=== PATIENT | male | born 2000 | race Caucasian/White ===

== ENCOUNTER 2019-05-06 21:25 | Emergency (ER) | payer BC ==
[2019-05-06] MEDS ORDERED: Sodium Chloride 0.9% 10 ML Syringe FLUSH PRN (21:28)
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
[2019-05-06 22:12] LABS: CHLORIDE,CL 101 mmol/L (98-107); SODIUM,NA 138 mmol/L (136-145)
== END 2019-05-06 23:50 | disposition home or self-care (01) ==
LOC: LL.ED 21:25
DX: S06.0X9A Concussion with loss of consciousness of unspecified duration, initial encounter (principal); S80.01XA Contusion of right knee, initial encounter; S80.11XA Contusion of right lower leg, initial encounter; M54.2 Cervicalgia; F41.8 Other specified anxiety disorders; F41.9 Anxiety disorder, unspecified; F32.9 Major depressive disorder, single episode, unspecified; Z79.899 Other long term (current) drug therapy; V43.52XA Car driver injured in collision with other type car in traffic accident, initial encounter
CPT/HCPCS: 36415; 72020; 72125; 73130-LT; 73562-LT; 73590-LT; 73590-RT; 80053; 81001; 82150; 82550; 82553; 83605; 83690; 83735; 84484; 84550; 85025; 85610; 85730; 87086; 99285-25; G0390

== ENCOUNTER 2019-12-31 07:41 | Observation (INO) | payer BC ==
[2019-12-31 08:22] LABS: CHLORIDE,CL 103 mmol/L (98-107); SODIUM,NA 143 mmol/L (136-145)
[2019-12-31] MEDS ORDERED: Ondansetron 4 MG Tab.DIS PO ONE (08:22)
[2019-12-31] MEDS ORDERED: Tamsulosin 0.4 MG Cap.ER PO ONE ×2 (08:22→10:27)
[2019-12-31] MEDS ORDERED: Sodium Chloride 0.9% 10 ML Syringe FLUSH PRN (08:22)
[2019-12-31] MEDS ORDERED: Ketorolac 60 MG/2 ML SDV IM ONE (08:22)
[2019-12-31] MEDS ORDERED: Sodium Chloride 0.9% 1,000 ML IV ONE ×2 (08:45→10:16)
--- NOTE | 2019-12-31 09:45 | EDM.PDOC ---
ED HPI GENERAL MEDICAL PROBLEM - General Chief Complaint: Abdominal Pain Stated Complaint: left sided abd pain Time Seen by Provider: 12/31/19 08:10 Source of Information: Reports: Patient History Limitations: Reports: No Limitations - History of Present Illness INITIAL COMMENTS - FREE TEXT/NARRATIVE: Sudden sharp stabbing left flank pain around 6:45 this morning. Followed by nausea/emesis. Bogard fine prior to episode. 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 No fevers/chills. No history of kidney stones but strong family history. Denies hematuria. Does have feeling of incomplete bladder emptying/urgency at times. Urinating can help with flank pain. No burning with urination. No other acute changes reported with ROS Left Abdomen Pain Score (Numeric/FACES): 8 - Related Data Allergies Allergy/AdvReac Type Severity Reaction Status Date / Time No Known Allergies Allergy Verified 12/31/19 07:42 Home Meds: Home Meds . [No Known Home Meds] 12/31/19 [History] Past Medical History HEENT History: Reports: None Cardiovascular History: Reports: None Respiratory History: Reports: None, Intubation, Previous Gastrointestinal History: Reports: None Genitourinary History: Reports: None Musculoskeletal History: Reports: None Neurological History: Reports: None Psychiatric History: Reports: Anxiety, Depression Endocrine/Metabolic History: Reports: None Hematologic History: Reports: None Immunologic History: Reports: None Dermatologic History: Reports: None - Infectious Disease History Infectious Disease History: Reports: Chicken Pox - Past Surgical History Head Surgeries/Procedures: Reports: None HEENT Surgical History: Reports: Adenoidectomy, Oral Surgery, Tonsillectomy, Other (See Below) Other HEENT Surgeries/Procedures: Tonsillectomy and adenoidectomy on 02/15/03. Previous braces. Cardiovascular Surgical History: Reports: None Respiratory Surgical History: Reports: None GI Surgical History: Reports: None Male Surgical History: Reports: Circumcision, Other (See Below) Other Male Surgeries/Procedures: Circumcision as an infant Endocrine Surgical History: Reports: None Neurological Surgical History: Reports: None Musculoskeletal Surgical History: Reports: None Oncologic Surgical History: Reports: None Dermatological Surgical History: Reports: None Social & Family History - Tobacco Use Smoking Status *Q: Never Smoker Second Hand Smoke Exposure: No - Caffeine Use Caffeine Use: Reports: Soda - Alcohol Use Alcohol Use Frequency: Socially - Recreational Drug Use Recreational Drug Use: No - Living Situation & Occupation Living situation: Reports: Single, with Family (Parents and sibling) Occupation: Employed ([employer] ED ROS GENERAL - Review of Systems Review Of Systems: Comprehensive ROS is negative, except as noted in HPI. ED EXAM, GENERAL - Physical Exam Exam: See Below Exam Limited By: No Limitations General Appearance: Alert, Moderate Distress Eye Exam: Bilateral Eye: EOMI, PERRL Ears: Hearing Grossly Normal Nose: No: Nasal Deformity, Nasal Swelling, Nasal Drainage Throat/Mouth: Normal Lips, Normal Voice, No Airway Compromise Head: Atraumatic, Normocephalic Neck: Normal Inspection, Supple, Non-Tender, Full Range of Motion Respiratory/Chest: No Respiratory Distress, Lungs Clear, Normal Breath Sounds, No Accessory Muscle Use, Chest Non-Tender Cardiovascular: Regular Rate, Rhythm, No Murmur GI/Abdominal: Soft, Tender (Left mid abdomen), Abnormal Bowel Sounds (decreased) . No: Guarding, Rigid, Rebound, Mass (Male) Exam: Deferred Rectal (Males) Exam: Deferred Back Exam: No: CVA Tenderness (L), CVA Tenderness (R), Muscle Spasm, Paraspinal Tenderness, Vertebral Tenderness Extremities: Normal Inspection, Normal Capillary Refill Neurological: Alert, Oriented, Normal Cognition, Normal Gait Psychiatric: Anxious Skin Exam: Warm, Dry, Intact, Normal Color Course - Vital Signs Last Recorded V/S: Last Vital Signs Temp 37.1 C 12/31/19 07:52 Pulse 74 12/31/19 08:02 Resp 20 12/31/19 08:02 BP 123/91 H 12/31/19 08:02 Pulse Ox 100 12/31/19 08:02 - Orders/Labs/Meds Orders: Active Orders 24 hr Category Date Time Status Abdomen 2V AP Flat Upright [CR] Stat Exams 12/31/19 07:49 Taken Abdomen Pelvis wo Cont [CT] Stat Exams 12/31/19 08:23 Ordered Sodium Chloride 0.9% [Normal Saline] 1,000 ml Med 12/31/19 08:45 Ordered IV .BOLUS Sodium Chloride 0.9% [Saline Flush] Med 12/31/19 08:22 Ordered 10 ml FLUSH ASDIRECTED PRN Saline Lock Insert [OM.PC] Routine Oth 12/31/19 08:22 Ordered Medication Orders Sodium Chloride (Normal Saline) 1,000 mls @ 999 mls/hr IV .BOLUS ONE Stop: 12/31/19 09:45 Last Admin: 12/31/19 08:51 Dose: 999 mls/hr Sodium Chloride (Saline Flush) 10 ml FLUSH ASDIRECTED PRN PRN Reason: Keep Vein Open Labs: Laboratory Tests 12/31/19 12/31/19 12/31/19 Range/Units 07:56 07:57 07:57 WBC 10.0 (4.0-10.2) K/uL RBC 4.93 (4.33-5.41) M/uL Hgb 15.5 (13.1-16.8) g/dL Hct 41.8 (39.0-49.0) % MCV 84.8 (84.0-98.0) fL MCH 31.4 (28.2-33.3) pg MCHC 37.1 H (31.7-36.0) g/dL RDW 12.6 (11.2-14.1) % Plt Count 268 (150-350) K/uL Neut % (Auto) 64.2 (45.0-80.0) % Lymph % (Auto) 24.9 (10.0-50.0) % [place] % (Auto) 9.8 (2.0-14.0) % Eos % (Auto) 0.8 (0.0-5.0) % Baso % (Auto) 0.3 (0.0-2.0) % Neut # (Auto) 6.40 (1.40-7.00) K/uL Lymph # (Auto) 2.49 (0.50-3.50) K/uL [place] # (Auto) 0.98 (0.00-1.00) K/uL Eos # (Auto) 0.08 (0.00-0.50) K/uL Baso # (Auto) 0.03 (0.00-0.20) K/uL Sodium 143 (136-145) mmol/L Potassium 3.5 (3.5-5.1) mmol/L Chloride 103 (98-107) mmol/L Carbon Dioxide 28.1 (21.0-32.0) mmol/L BUN 13 (7-18) mg/dL Creatinine 0.95 (0.51-1.17) mg/dL Est Cr Clr Drug Dosing 136.14 mL/min Estimated GFR (MDRD) > 60 mL/min Glucose 126 H (74-106) mg/dL Calcium 9.4 (8.5-10.1) mg/dL Total Bilirubin 0.7 (0.2-1.0) mg/dL AST 17 (15-37) U/L ALT 28 (12-78) U/L Alkaline Phosphatase 104 (46-116) IU/L Total Protein 7.6 (6.4-8.2) g/dL Albumin 4.7 (3.4-5.0) g/dL Specimen Type Urinvoid Urine Color Yellow Urine Appearance Clear Urine pH 5.5 (5.0-9.0) Ur Specific [place] >= 1.030 (1.005-1.030) Urine Protein Trace H (NEGATIVE) mg/dL Urine Glucose (UA) Negative (NEGATIVE) mg/dL Urine Ketones Negative (NEGATIVE) mg/dL Urine Occult Blood Trace-lysed H (NEGATIVE) Urine Nitrite Negative (NEGATIVE) Urine Bilirubin Negative (NEGATIVE) Urine Urobilinogen 0.2 (0.2-1.0) E.U./dL Ur Leukocyte Esterase Negative (NEGATIVE) Urine RBC 5-10 H /HPF Urine WBC 0-5 /HPF Ur Epithelial Cells Few /LPF Urine Bacteria Few (NONE TO FEW) /HPF Urine Mucus Few H (NEGATIVE) /LPF Meds: Medications Generic Name Dose Route Start Last Admin Trade Name Freq PRN Reason Stop Dose Admin Sodium Chloride 1,000 mls @ 999 mls/hr 12/31/19 08:45 12/31/19 08:51 Normal Saline IV 12/31/19 09:45 999 mls/hr .BOLUS ONE Administration Sodium Chloride 10 ml 12/31/19 08:22 Saline Flush FLUSH ASDIRECTED PRN Keep Vein Open Discontinued Medications Generic Name Dose Route Start Last Admin Trade Name Freq PRN Reason Stop Dose Admin Ketorolac Tromethamine 60 mg 12/31/19 08:22 12/31/19 08:30 Toradol IM 12/31/19 08:23 60 mg ONETIME ONE Administration Ondansetron HCl 4 mg 12/31/19 08:22 12/31/19 08:30 Zofran Odt PO 12/31/19 08:23 4 mg ONETIME ONE Administration Tamsulosin HCl 0.4 mg 12/31/19 08:22 12/31/19 08:31 Flomax PO 12/31/19 08:23 0.4 mg ONETIME ONE Administration - Radiology Interpretation Free Text/Narrative:: CT confirmed nonobstructing 3.2mm stone near left UVJ. Also noted to have 3mm nonobstructing stone within left kidney CT Results Date: 12/31/19 CT Results Time: 09:45 - Re-Assessments/Exams Free Text/Narrative Re-Assessment/Exam: Patient received IM Toradol and PO Zofran/Flomax upon arrival. CT ordered. Pain and nausea improved. IV fluid bolus initiated. CT confirmed presence of left sided kidney stone near UVJ. Patient admit to observation for continued pain control and IV hydration. Departure - Departure Time of Disposition: 10:10 Disposition: Refer to Observation Condition: Good Clinical Impression: Kidney stone on left side - Discharge Information Referrals: Karoline Cooper NP [Primary Care Provider] - Sepsis Event Note - Evaluation Sepsis Screening Result: No Definite Risk - Focused Exam Vital Signs: Vital Signs Temp Pulse Resp BP Pulse Ox 12/31/19 08:02 74 20 123/91 H 100 12/31/19 07:52 37.1 C 72 19 143/108 H 100 Date Exam was Performed: 12/31/19 Time Exam was Performed: 09:31 - Problem List & Annotations (1) Kidney stone on left side SNOMED Code(s): 78378845 Code(s): N20.0 - CALCULUS OF KIDNEY Status: Acute Priority: High Current Visit: Yes Onset Date: 12/31/19 Annotation/Comment:: 3.2mm stone left UVJ. Pain improved with Toradol. Nausea improved with Zofran. Admit for continued pain control and IV hydration. - Problem List Review Problem List Initiated/Reviewed/Updated: Yes - My Orders Last 24 Hours: My Active Orders 12/31/19 07:49 Abdomen 2V AP Flat Upright [CR] Stat 12/31/19 08:22 Sodium Chloride 0.9% [Saline Flush] 10 ml FLUSH ASDIRECTED PRN Saline Lock Insert [OM.PC] Routine 12/31/19 08:23 Abdomen Pelvis wo Cont [CT] Stat 12/31/19 08:45 Sodium Chloride 0.9% [Normal Saline] 1,000 ml IV .BOLUS - Assessment/Plan Admission H&P: Please use this note as an admission H&P Last 24 Hours: My Active Orders 12/31/19 07:49 Abdomen 2V AP Flat Upright [CR] Stat 12/31/19 08:22 Sodium Chloride 0.9% [Saline Flush] 10 ml FLUSH ASDIRECTED PRN Saline Lock Insert [OM.PC] Routine 12/31/19 08:23 Abdomen Pelvis wo Cont [CT] Stat 12/31/19 08:45 Sodium Chloride 0.9% [Normal Saline] 1,000 ml IV .BOLUS Assessment:: as above Plan: as above. Anticipate 24-48 hour stay depending on how quickly patient passes stone.
[2019-12-31] MEDS ORDERED: Ondansetron 4 MG Tab.DIS PO PRN (10:13)
[2019-12-31] MEDS ORDERED: Acetaminophen 325 MG Tab PO PRN (11:00)
[2019-12-31] MEDS ORDERED: Acetaminophen/oxyCODONE 325-5 MG Tab PO PRN (11:00)
[2019-12-31] MEDS ORDERED: Sodium Chloride 0.9% 1,000 ML IV SCH (12:30)
[2019-12-31] MEDS ORDERED: FLU Vacc QS2019-20(6MOS+)/PF 60 MCG/0.5 ML SYRINGE IM ONE (14:30)
[2019-12-31] MEDS ORDERED: Ketorolac 30 MG/ML SDV IVPUSH SCH (14:30)
[2019-12-31] MEDS ORDERED: Ondansetron 4 MG/2 ML SDV IVPUSH PRN (14:30)
--- NOTE | 2019-12-31 14:51 | PCM.SN ---
- Free Text/Narrative Note: Patient passed small 2mm stone. 3.5mm estimated by Radiology. Will continue to monitor patient for return of pain. Will hold scheduled Toradol for now. Consider discharge home if remains pain-free.
--- NOTE | 2019-12-31 17:33 | PCM.DCSUM1 ---
Discharge Summary - Hospital Course Brief History: Patient admitted for pain control due to kidney stone Diagnosis: Stroke: No - Discharge Data Discharge Date: 12/31/19 Discharge Disposition: Home, Self-Care 01 Condition: Good - Referral to Home Health Primary Care Physician: Karoline Cooper NP - Discharge Diagnosis/Problem(s) (1) Kidney stone on left side SNOMED Code(s): 61256125 ICD Code: N20.0 - CALCULUS OF KIDNEY Status: Acute Priority: High Current Visit: Yes Onset Date: 12/31/19 Problem Details: 3.2mm stone left UVJ per Radiology. Pain improved with Toradol. Nausea improved with Zofran. Admitted for continued pain control and IV hydration. Noted to pass small stone , around 2mm in size. Observed for several hours. No additional pain medications given to patient. No additional pain complaints. Suspect patient has successfully passed stone. - Patient Summary/Data Hospital Course: Patient evaluated in ER for sudden left flank pain/dysuria. CT showed probable 3mm stone near left UVJ. Pain improved with Toradol. Also given Zofran which improved nausea. Flomax PO. Received several liters of IV fluid. Eventually passed what appeared to be 2mm stone. No further pain complaints. Will discharge patient home at this time with instructions to return to ER if pain returns. Otherwise to follow up with own MD for continued care. - Patient Instructions Diet: Usual Diet as Tolerated Activity: As Tolerated Driving: Do Not Drive Showering/Bathing: May Shower Notify Provider of: Fever, Increased Pain, Nausea and/or Vomiting Other/Special Instructions: Stone has been given to lab for evaluation. Follow up with your primary provider to discuss results once available and strategies to avoid future stones. - Discharge Plan *PRESCRIPTION DRUG MONITORING PROGRAM REVIEWED*: Not Applicable *COPY OF PRESCRIPTION DRUG MONITORING REPORT IN PATIENT HEBER: Not Applicable Home Medications: Home Meds . [No Known Home Meds] 12/31/19 [History] Forms: ED Department Discharge Referrals: Karoline Cooper NP [Primary Care Provider] - - Discharge Summary/Plan Comment DC Time >30 min.: No - Patient Data Vitals - Most Recent: Last Vital Signs Temp 36.6 C 12/31/19 11:11 Pulse 72 12/31/19 11:11 Resp 15 12/31/19 11:11 BP 117/68 12/31/19 11:11 Pulse Ox 98 12/31/19 11:11 Weight - Most Recent: 102.058 kg I&O - Last 24 hours: Intake & Output 12/31/19 12/31/19 12/31/19 06:59 14:59 22:59 Intake Total 120 Output Total 2275 Balance -2155 Lab Results - Last 24 hrs: Laboratory Results - last 24 hr 12/31/19 12/31/19 12/31/19 Range/Units 07:56 07:57 07:57 WBC 10.0 (4.0-10.2) K/uL RBC 4.93 (4.33-5.41) M/uL Hgb 15.5 (13.1-16.8) g/dL Hct 41.8 (39.0-49.0) % MCV 84.8 (84.0-98.0) fL MCH 31.4 (28.2-33.3) pg MCHC 37.1 H (31.7-36.0) g/dL RDW 12.6 (11.2-14.1) % Plt Count 268 (150-350) K/uL Neut % (Auto) 64.2 (45.0-80.0) % Lymph % (Auto) 24.9 (10.0-50.0) % [place] % (Auto) 9.8 (2.0-14.0) % Eos % (Auto) 0.8 (0.0-5.0) % Baso % (Auto) 0.3 (0.0-2.0) % Neut # (Auto) 6.40 (1.40-7.00) K/uL Lymph # (Auto) 2.49 (0.50-3.50) K/uL [place] # (Auto) 0.98 (0.00-1.00) K/uL Eos # (Auto) 0.08 (0.00-0.50) K/uL Baso # (Auto) 0.03 (0.00-0.20) K/uL Sodium 143 (136-145) mmol/L Potassium 3.5 (3.5-5.1) mmol/L Chloride 103 (98-107) mmol/L Carbon Dioxide 28.1 (21.0-32.0) mmol/L BUN 13 (7-18) mg/dL Creatinine 0.95 (0.51-1.17) mg/dL Est Cr Clr Drug Dosing 136.14 mL/min Estimated GFR (MDRD) > 60 mL/min Glucose 126 H (74-106) mg/dL Calcium 9.4 (8.5-10.1) mg/dL Total Bilirubin 0.7 (0.2-1.0) mg/dL AST 17 (15-37) U/L ALT 28 (12-78) U/L Alkaline Phosphatase 104 (46-116) IU/L Total Protein 7.6 (6.4-8.2) g/dL Albumin 4.7 (3.4-5.0) g/dL Specimen Type Urinvoid Urine Color Yellow Urine Appearance Clear Urine pH 5.5 (5.0-9.0) Ur Specific [place] >= 1.030 (1.005-1.030) Urine Protein Trace H (NEGATIVE) mg/dL Urine Glucose (UA) Negative (NEGATIVE) mg/dL Urine Ketones Negative (NEGATIVE) mg/dL Urine Occult Blood Trace-lysed H (NEGATIVE) Urine Nitrite Negative (NEGATIVE) Urine Bilirubin Negative (NEGATIVE) Urine Urobilinogen 0.2 (0.2-1.0) E.U./dL Ur Leukocyte Esterase Negative (NEGATIVE) Urine RBC 5-10 H /HPF Urine WBC 0-5 /HPF Ur Epithelial Cells Few /LPF Urine Bacteria Few (NONE TO FEW) /HPF Urine Mucus Few H (NEGATIVE) /LPF Med Orders - Current: Current Medications Acetaminophen (Tylenol) 650 mg PO Q4H PRN PRN Reason: Pain (Mild 1-3)/fever Sodium Chloride (Normal Saline) 1,000 mls @ 150 mls/hr IV ASDIRECTED [facility] Last Admin: 12/31/19 11:33 Dose: 150 mls/hr Ketorolac Tromethamine (Toradol) 30 mg IVPUSH Q6H [facility] Stop: 01/05/20 14:31 Ondansetron HCl (Zofran) 4 mg IVPUSH Q6H PRN PRN Reason: Nausea/Vomiting Oxycodone/Acetaminophen (Percocet 325-5 Mg) 1 tab PO Q4H PRN PRN Reason: Pain (moderate 4-6) Sodium Chloride (Saline Flush) 10 ml FLUSH ASDIRECTED PRN PRN Reason: Keep Vein Open Discontinued Medications Sodium Chloride (Normal Saline) 1,000 mls @ 999 mls/hr IV .BOLUS ONE Stop: 12/31/19 09:45 Last Admin: 12/31/19 08:51 Dose: 999 mls/hr Sodium Chloride (Normal Saline) 1,000 mls @ 500 mls/hr IV .BOLUS ONE Stop: 12/31/19 12:15 Last Admin: 12/31/19 11:33 Dose: 500 mls/hr Influenza Virus Vaccine (Fluzone Quad Syringe) 60 mcg IM .ONCE ONE Stop: 12/31/19 14:31 Last Admin: 12/31/19 14:36 Dose: 60 mcg Ketorolac Tromethamine (Toradol) 60 mg IM ONETIME ONE Stop: 12/31/19 08:23 Last Admin: 12/31/19 08:30 Dose: 60 mg Ondansetron HCl (Zofran Odt) 4 mg PO ONETIME ONE Stop: 12/31/19 08:23 Last Admin: 12/31/19 08:30 Dose: 4 mg Ondansetron HCl (Zofran Odt) 4 mg PO Q6H PRN PRN Reason: Nausea/Vomiting Tamsulosin HCl (Flomax) 0.4 mg PO ONETIME ONE Stop: 12/31/19 08:23 Last Admin: 12/31/19 08:31 Dose: 0.4 mg Tamsulosin HCl (Flomax) 0.4 mg PO ONETIME ONE Stop: 12/31/19 10:28 Last Admin: 12/31/19 11:32 Dose: 0.4 mg
== END 2019-12-31 18:00 | disposition home or self-care (01) ==
LOC: LL.ED 07:41 → LL.MS 09:33 → UNDOADMOB 09:33 → LL.MS 10:13
PROVIDERS: ADMIT Emergency Medicine; ATTEND Emergency Medicine
DX: N20.2 Calculus of kidney with calculus of ureter (principal)
CPT/HCPCS: 36415; 74019; 74176; 80053; 81001; 82360; 85025; 90686; 96360; 96361; 96372; 99285-25; A9270-GY; G0378; J1885; J7030